=== PATIENT | female | born 1960 ===

== ENCOUNTER 2020-11-02 11:14 | Day surgery (SDC) | payer OTHER ==
[~2020-11-02] VITALS: Ht 160 cm; Wt 66.8 kg
[~2020-11-02 11:14] MED LIST: ACET500 PO; CALCIUM CITRAT250 MG PO; CYAN500 PO; IRON18 MG PO; MAGCHL64ER PO; MULVITA PO; VITAMIN D310 MC4 PO
--- NOTE | 2020-11-02 12:12 | NUR ---
Ambulatory in Day Surgery. Pre-Op teaching done. Pt verbalizes understanding. Patient confirms NPO status and agrees with scheduled surgery. Patient States Post-Procedure ride home has been arranged.
--- NOTE | 2020-11-02 17:54 | NUR ---
SUMMARY PT RESTING IN RECLINER AT THIS TIME. HAS BEEN UP TO RESTROOM AND VOIDED. ENCOURAGED PT TO KEEP KNEE STRAIGHT WHEN AT REST, PT LIKES TO DRAW KNEE UP, STATING MORE COMFORTABLE. POLAR PACK IN PLACE. CALL LIGHT IN REACH.
[2020-11-03 05:51] LABS: BASOPHILS ABSOLUTE AUTO 0.02 K/mm3 (0.00-0.23); BASOPHILS PERCENT AUTO 0 % (0-2); EOSINOPHILS ABSOLUTE AUTO 0.01 K/mm3 (0.00-0.68); EOSINOPHILS PERCENT AUTO 0 % (0-6); Hematocrit 39.2 % (33.0-51.0); IMMATURE GRAN ABSOLUTE AUTO 0.04 K/mm3 (0.00-0.10); IMMATURE GRAN PERCENT AUTO 0 % (0-1); LYMPHOCYTES ABSOLUTE AUTO 1.15 K/mm3 (0.84-5.20); LYMPHOCYTES PERCENT AUTO 8 % (21-46); MONOCYTES ABSOLUTE AUTO 0.75 K/mm3 (0.16-1.47); MONOCYTES PERCENT AUTO 5 % (4-13); Mean Corpuscular HGB 29.9 pg (26.0-34.0); Mean Corpuscular HGB Conc 33.2 g/dL (31.5-36.5); Mean Corpuscular Volume 90 fL (80-100); Mean Platelet Volume 10.1 fL (9.1-12.4); NEUTROPHILS ABSOLUTE AUTO 11.98 K/mm3 (1.96-9.15); NEUTROPHILS PERCENT AUTO 86 % (41-73); Platelet Count 337 K/mm3 (150-400); RDW Coefficient Variation 12.5 % (11.7-14.2); RDW Standard Deviation 41.6 fL (35.1-46.3); Red Blood Cell Count 4.35 M/mm3 (3.80-5.20); White Blood Cell Count 13.95 K/mm3 (4.00-11.30)
[2020-11-03 06:18] LABS: Anion Gap 6 mmol/L (6-16); Blood Urea Nitrogen 17 mg/dL (8-24); Bun/Creatinine Ratio 24.2 (12.0-20.0); CO2, Blood 26 mmol/L (21-32); Calcium, Blood 8.7 mg/dL (8.5-10.1); Chloride, Blood 104 mmol/L (98-108); Glomerular Filtration Rate >60 (60-); Glucose, Blood 109 mg/dL (70-99); Magnesium, Blood 2.1 mg/dL (1.6-2.4); Potassium, Blood 4.3 mmol/L (3.5-5.5); Sodium, Blood 136 mmol/L (136-145)
--- NOTE | 2020-11-03 06:43 | NUR ---
SHIFT SUMMARY SITTING UP IN CHAIR AT BEDSIDE WITH EYES OPEN WHILE TV IN ROOM. RLE ELEVATED WITH POLAR PRASANNA IN PLACE. CHARLIE'S AND SCD'S PER MD ORDERS. PAIN MANAGED WITH PRN MEDS. NO SIGNIFICANT CHANGES NOTED THIS SHIFT. DENIES PAIN, DISCOMFORT, OR FURTHER NEEDS AT THIS TIME. SAFETY MEASURES IN PLACE. WILL CONTINUE TO MONITOR FOR CHANGES/NEEDS AND ADDRESS THEM THEY ARISE. WILL GIVE HAND OFF TO ONCOMING SHIFT USING SBAR DURING BEDSIDE REPORT.
--- NOTE | 2020-11-03 09:39 | NUR ---
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
[2020-11-03] MEDS ORDERED: XARELTO10 M1 PO (10:13)
[2020-11-03] MEDS ORDERED: OXYC5 PO (10:14)
--- NOTE | 2020-11-03 10:55 | NUR ---
DC'D PT IV DC PT L WRIST IV. CATHETER INTACT.
--- NOTE | 2020-11-03 11:00 | NUR ---
DISCHARGED WENT OVER DISCHARGE INSTRUCTIONS WITH PT. PROVIDED DRESSINGS. DC'D IV. PT AWAITING RIDE.
--- NOTE | 2020-11-03 11:10 | NUR ---
PT LEFT FLOOR WITH DISCHARGE INFORMATION, PERSONAL POSESSIONS IN HAND AND POLAR PACK TO RIDE WAITING OUTSIDE.
== END 2020-11-03 11:09 | disposition home or self-care (01) ==
LOC: ORSCMMR 11:14 → ORD 14:15 → ORSCMMR 14:15 → SURS 16:30 → ORSCMMR 11-03 11:09
PROVIDERS: Orthopaedic Surgery
PROC: 0SRC0JA Replacement of Right Knee Joint with Synthetic Substitute, Uncemented, Open Approach (ICD-10-PCS; principal; 2020-11-02 14:15)
DX: M17.11 Unilateral primary osteoarthritis, right knee (principal); G47.33 Obstructive sleep apnea (adult) (pediatric); Z87.891 Personal history of nicotine dependence
CPT/HCPCS: 36415; 73560-RT; 80048; 82947; 83735; 85025; 97110; 97116; 97162; 97530; A9270; A9270-GY; C1776; J0171; J0690; J0735; J1100; J1885; J2250; J2370; J2405; J2704; J2795; J3010; J7120